=== PATIENT | male | born 1960 | race Caucasian/White ===

== ENCOUNTER 2019-09-21 16:54 | Emergency (ER) | payer MEDICAID ==
[2019-09-21] MEDS ORDERED: DEXAMETHASONE SOD PHOS INJ 10 MG/1 ML VIAL IM ONE (18:21)
[2019-09-21] MEDS ORDERED: KETOROLAC TROMETHAMINE 60 MG/2 ML SDV IM ONE (18:21)
--- NOTE | 2019-09-21 18:24 | ER Document Report ---
HPI - HPI Time Seen by Provider: 09/21/19 18:15 Notes: Patient is a 59-year-old male with a h/o chronic back pain (on disability for it) who presents to the ED complaining of left buttock and left lower back pain x2 weeks without obvious injury. Patient states that bending twisting of the trunk make his pain worse. The pain has been occasionally radiating down the LLE. He is eating and drinking without any difficulties. He is urinating normally and having normal bowel movements. He has not had any injections or procedures to his lower back. Denies any IV drug abuse. No other concerns or complaints. Denies any headache, fever, head injury, neck pain, changes in vision/speech/mentation/hearing, URI, sore throat, chest pain, palpitations, syncope, cough, shortness of breath, wheeze, dyspnea, abdominal pain, nausea/vomiting/diarrhea, urinary retention, dysuria, hematuria, loss of control of bowel or bladder, numbness/tingling, saddle anesthesia, muscle paralysis/weakness, or rash. - ROS Systems Reviewed and Negative: Yes All other systems reviewed and negative Past Medical History - Social History Smoking Status: Unknown if Ever Smoked Family History: Reviewed & Not Pertinent Vertical Provider Document - CONSTITUTIONAL Agree With Documented VS: Yes Notes: PHYSICAL EXAMINATION: GENERAL: Well-appearing, well-nourished and in no acute distress. LUNGS: Breath sounds clear to auscultation bilaterally and equal. No wheezes rales or rhonchi. HEART: Regular rate and rhythm without murmurs, rubs, gallops. ABDOMEN: Soft, nontender, nondistended abdomen. No guarding, no rebound. No masses appreciated. Normal bowel sounds present. No CVA tenderness bilaterally. No pulsatile mass Musculoskeletal: LE's b/l: FROM to passive/active. Strength 5+/5. No deficits noted. No bony tenderness of extremities. Back: FROM to passive/active. Strength 5+/5. No vertebral point tenderness, stepoffs, or deformities. No other bony tenderness, erythema, swelling, or ecchymosis. SLR negative b/l. + mild tenderness to the L-paraspinal mm Lt. Mild spasming. Left SI jt tenderness. No foot drop Extremities: No cyanosis, clubbing, or edema b/l. Peripheral pulses 2+. Capillary refill less than 2 seconds. NEUROLOGICAL: Normal speech, favors left side gait. Normal sensory, motor exams. Reflexes 2+ b/l. PSYCH: Normal mood, normal affect. SKIN: Warm, Dry, normal turgor, no rashes or lesions noted. Course - Re-evaluation Re-evalutation: 09/21/19 18:23 Patient is an afebrile, well-hydrated, 59-year-old male who presents to the ED with acute on chronic low back pain and possible sciatica. Vitals are acceptable. PE is otherwise unremarkable for any focal neurological deficits. Patient was given Decadron, Toradol. He has no significant tachycardia, tachypnea, or hypoxia. He is nontoxic-appearing and is tolerating p.o. without difficulties. There are no signs of infection. No other red flag symptoms noted. No other labs or imaging warranted at this time based on H&P. Low suspicion for any meningitis, fracture, expanding/ruptured AAA, cauda equina syndrome, epidural mass lesion/abscess, herniated disc causing severe spinal stenosis, or other systemic infection at this time. Patient is aware that his condition can change from initial presentation and that he needs monitor symptoms closely for any acute changes. I will send him home with a pr escription for Robaxin and Motrin. Conservative measures otherwise for symptoms. Recheck with your PCM in 3-5 days. Consider consult with pain management/orthopedic/physical therapy. Return to the ED with any worsening/concerning symptoms otherwise as reviewed discharge. Patient is in agreement. - Vital Signs Vital signs: Temp Pulse Resp BP Pulse Ox 97.7 F 81 18 196/88 H 96 09/21/19 17:03 09/21/19 17:03 09/21/19 17:03 09/21/19 17:03 09/21/19 17:03 Discharge - Discharge Clinical Impression: Acute exacerbation of chronic low back pain Condition: Stable Disposition: HOME, SELF-CARE Instructions: Low Back Pain ([facility]), Muscle Relaxers ([facility]) Additional Instructions: Rest, Ice Tylenol/ibuprofen as needed Light stretches daily Strength exercises as able Moist heat and massage may help F/u with your PCP in 3-5 days for a recheck Consider consult(s) with pain management/orthopedics/physical therapy for ongoing/worsening symptoms Return to the ED with any worsening symptoms and/or development of fever, headache, chest pain, palpitations, syncope, shortness of breath, trouble breathing, abdominal pain, n/v/d, blood in stool/urine, loss of control of jess wel/bladder, urinary retention, muscle weakness/paralysis, saddle anesthesia, numbness/tingling, or other worsening symptoms that are concerning to you. Forms: Elevated Blood Pressure Referrals: [facility] [Provider Group] - Follow up in 1 week
[2019-09-21 18:43] VITALS: BP 202/95
== END 2019-09-21 18:45 | disposition home or self-care (01) ==
LOC: ER 16:54
DX: M54.5 Low back pain (principal); G89.29 Other chronic pain; M54.9 Dorsalgia, unspecified; X50.1XXA Overexertion from prolonged static or awkward postures, initial encounter
CPT/HCPCS: 99283; 96372; J1885; J1100

== ENCOUNTER 2019-10-08 23:13 | Emergency (ER) | payer MEDICAID ==
[2019-10-09] MEDS ORDERED: HYDROMORPHONE HCL INJ/PF 2 MG/ML AMPULE IM ONE (00:36)
[2019-10-09] MEDS ORDERED: HYDROCODONE/ACETAMINOPHEN 5-325 MG (6 TAB/ER DISP) PO PRN (00:37)
[2019-10-09] MEDS ORDERED: DEXAMETHASONE SOD PHOS INJ 10 MG/1 ML VIAL IM ONE (00:38)
--- NOTE | 2019-10-09 00:41 | ER Document Report ---
ED General - General Chief Complaint: Abdominal Pain Stated Complaint: ABDOMINAL PAIN Time Seen by Provider: 10/09/19 00:16 Primary Care Provider: [facility] [Provider Group] - Follow up in 3-5 days JAN MELARA MD [ACTIVE STAFF] - Follow up in 3-5 days Notes: Patient is a 59-year-old male that comes emergency department with 2 complaints. First complaint is sudden sharp grabbing pain in his abdomen that started earlier today, he states he still feels some generalized pain. He does have a hernia in his left inguinal area, he states this is usually not tender but is suddenly tender today. He denies vomiting, pain is not as bad as it was before, he denies fever or chills. Second complaint is ongoing problems with chronic sciatica on the left side. He had an MRI last year which showed disc bulging on 2 levels in the lumbar spine along with spinal stenosis and degenerative changes. He states he has a referral to pain management but is having trouble getting comfortable. He states he needs primary care to help him get established with either physical therapy or spinal surgery. He states he is new to the area. - Related Data Allergies/Adverse Reactions: No Known Allergies Allergy (Unverified 09/21/19 18:26) Home Medications: naproxin. [place] Past Medical History - General Information source: Patient - Social History Smoking Status: Current Every Day Smoker Smoking Education Provided: Yes - <3 min Frequency of alcohol use: Occasional Drug Abuse: None Lives with: Family Family History: Reviewed & Not Pertinent Patient has suicidal ideation: No Patient has homicidal ideation: No Musculoskeletal Medical History: Reports Hx Arthritis - Immunizations Immunizations up to date: Yes Hx Diphtheria, Pertussis, Tetanus Vaccination: Yes Review of Systems - Review of Systems Constitutional: No symptoms reported EENT: No symptoms reported Cardiovascular: No symptoms reported Respiratory: No symptoms reported Gastrointestinal: See HPI Genitourinary: No symptoms reported Male Genitourinary: No symptoms reported Musculoskeletal: No symptoms reported Skin: No symptoms reported Hematologic/Lymphatic: No symptoms reported Neurological/Psychological: No symptoms reported Physical Exam - Vital signs Vitals: Temp Pulse Resp BP Pulse Ox 97.5 F 85 20 175/96 H 94 10/08/19 23:28 10/08/19 23:28 10/08/19 23:28 10/08/19 23:28 10/08/19 23:28 - Notes Notes: GENERAL: Uncomfortable and somewhat restless HEAD: Normocephalic, atraumatic. EYES: Pupils equal, round, and reactive to light. Extraocular movements intact. ENT: Oral mucosa moist, tongue midline. Oropharynx unremarkable. Airway patent. LUNGS: Clear to auscultation bilaterally, no wheezes, rales, or rhonchi. No respiratory distress. HEART: Regular rate and rhythm. No murmur ABDOMEN: Generally unremarkable abdomen except there is a left inguinal hernia which initially was tender but was also easily reduced. No erythema or induration over the area. Otherwise unremarkable. GENITOURINARY: Deferred EXTREMITIES: Moves all 4 extremities spontaneously. No edema, normal radial and dorsalis pedis pulses bilaterally. No cyanosis. BACK: no cervical, thoracic, lumbar midline tenderness. No saddle anesthesia, normal distal neurovascular exam. Moves all extremities in full range of motion. Ambulates without difficulty. NEUROLOGICAL: Alert and oriented x3. Normal speech. Cranial nerves II through XII grossly intact. PSYCH: Restless SKIN: Warm, dry, normal turgor. No rashes or lesions noted. Course - Re-evaluation Re-evalutation: On examination patient has tenderness over the left inguinal hernia. Patient had pain over the area, on examination of this area was reduced easily, this was painful but afterwards patient reported significant improvement and this did not appear to come back out. Area was not erythematous or indurated. Patient denied vomiting. I did discuss potential imaging and laboratory work-up but patient declined, I feel this is appropriate based on patient's reducible hernia and well appearance afterwards. After this was performed patient's only complaint was his ongoing chronic sciatica. He request steroids after discussion, request muscle relaxer, he does have good follow-up for this, he states he needs local primary care and he was provided with a referral for this. I did discuss return precautions for any new or worsening symptoms. [facility] follow-up discussed and provided as well. Patient and state appreciation and agreement. Stable at time of discharge. - Vital Signs Vital signs: Temp Pulse Resp BP Pulse Ox 98.0 F 80 20 170/90 H 95 10/09/19 01:05 10/09/19 01:05 10/09/19 01:05 10/09/19 01:05 10/09/19 01:05 Discharge - Discharge Clinical Impression: Left inguinal hernia, Chronic sciatica of left side Abdominal pain Qualifiers: Abdominal location: generalized Qualified Code(s): R10.84 - Generalized abdominal pain Condition: Stable Disposition: HOME, SELF-CARE Additional Instructions: In regards to the hernia, the hernia needed to be reduced tonight. This will need to be repaired, please follow-up closely with the general surgery clinic referral. I recommend stopping smoking, avoiding constipation by taking [id number] [id number], and avoid heavy lifting if possible. Return if you worsen including sudden severe pain, swelling or redness to the area, fever, vomiting. In regards to your back, you have been given dexamethasone tonight, you can take the cyclobenzaprine muscle relaxer especially at night to help you sleep. Please follow close with primary care follow-up and referral for additional management. Return if you develop new numbness, inability to control your bowels or bladder, or any other concerning or worsening symptoms. Prescriptions: Cyclobenzaprine HCl [Flexeril 5 mg Tablet] 1 - 2 tab PO TID PRN #30 tablet PRN Reason: Forms: Elevated Blood Pressure Referrals: [facility] [Provider Group] - Follow up in 3-5 days JAN MELARA MD [ACTIVE STAFF] - Follow up in 3-5 days
[2019-10-09 01:09] VITALS: BP 170/90
== END 2019-10-09 01:05 | disposition home or self-care (01) ==
LOC: ER 23:13
DX: K40.90 Unilateral inguinal hernia, without obstruction or gangrene, not specified as recurrent (principal); M54.32 Sciatica, left side; R10.84 Generalized abdominal pain; F17.200 Nicotine dependence, unspecified, uncomplicated; Z79.899 Other long term (current) drug therapy
CPT/HCPCS: 99283; 96372; J1170; J1100